=== PATIENT | female | born 2005 | race Caucasian/White ===

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

== ENCOUNTER 2023-11-12 07:31 | Inpatient (IN) ==
[2023-11-12] MEDS ORDERED: OXYTOCIN 30 UNITS/NSS 30 UNITS/500 ML BAG IV PRN (09:04)
[2023-11-12] MEDS ORDERED: LIDOCAINE 1% LOCAL 20 ML VIAL INFIL PRN (09:04)
--- NOTE | 2023-11-12 09:10 | History & Physical Report ---
Date of Service November 12, 2023 Assessment & Plan (1) Post-term , 40-42 weeks of gestation: Plan: 18 yo female at 40.2 wks, scheduled IOL for polyhydramnios VSS Afebrile heart rate reassuring, GBS negative, Cervix favorable, but Patel score less than 6, Plan to admit, monitor, labs, Cervidil for cervical ripening, Discussed what to expect during induction of labor, All questions were answered. (2) Polyhydramnios in ruby in third trimester: Admission and Anticipated Discharge Date Admission Date: November 12, 2023 History of Present Illness Primary Care Provider: NO PCP Patient is a 18-year-old G1, P0 at 40 weeks and 2 days of gestation who is presenting today for induction of labor for postdates and polyhydramnios. Last ZAIDA was 26 cm on November 05. She has no complaints, no contractions, leakage of fluid, vaginal bleeding. She reports good movements. Her has been otherwise uncomplicated, denies medical problems, nor surgeries. GBS negative. Allergies Allergy/AdvReac Type Severity Reaction Status Date / Time sulfamethoxazole Allergy Severe "1/2 OF Verified 07/04/21 22:15 BODY SWELLED UP, RASH". trimethoprim Allergy Severe "1/2 OF Verified 07/04/21 22:15 BODY SWELLED UP, RASH". cefuroxime Allergy Unknown Verified 10/12/23 17:16 cephalexin Allergy Rash Verified 10/12/23 17:16 Home Medications Medication Instructions Recorded Confirmed Type vits no.124-ferrous fum 1 tab PO DAILY 10/12/23 10/12/23 History 27 mg iron-folic acid 800 mcg tablet ( Vitamin) Patient History Medical History (Updated 11/12/23 @ 09:09 by Jordon Cross MD) Migraine Asthma Social History Smoking Status: Never smoker Hx Alcohol Use: No Hx Substance Use: No Preferred Language: Burkinan Communication Ability: Effective Physician Office Rep Required: No Beliefs That Will Affect Care: None marital status: Single Current Living Situation: Parent and Family Current Living Situation Comment: live with mom, and s/o Other Information That Helps Us Care for You: No Feels Safe at Home: Yes Safety Concerns: Feels Safe At This Time Assistive Devices: None CUSTOMER MANAGER History No history of STDs, no history of chlamydia, gonorrhea, herpes Review of Systems as per Subjective / HPI Physical Exam Constitutional: WD/WN, vitals as above well developed, well nourished and comfortable Gastrointestinal (Abdomen): normal bowel sounds, soft, nontender, no hepatosplenomegaly (Gravid, Royal 7 to 8 pound) Genitourinary: no vaginal lesions, no adnexal mass normal external appearance OB Exam Abdomen: + vertex Manual OB Exam: + cervical dilation 2 cm, + cervical effacement 50% and + station -2 OB Exam Monitor Tracing: + external uterine monitor used and + category I Bedside ultrasound confirmed vertex presentation, ZAIDA is 20cm Results & Data Vital Signs (Past 12 Hours) Vital Signs Temp Pulse Resp BP 11/12/23 07:42 16 11/12/23 07:39 96 H 117/63 11/12/23 07:38 36.5 C
[2023-11-12] MEDS: DINOPROSTONE 10 MG INSERT PV ONE (09:50)
[2023-11-12 09:51] LABS: Hematocrit (blood only) 36.2 % (37.0-47.0); Mean Corpuscular Hemoglobin 28.9 pg (25.0-34.0); Mean Corpuscular Hgb Conc 33.1 g/dL (32.0-36.0); Mean Corpuscular Volume 87.2 fL (80.0-100.0); Platelet Count 274 K/uL (130-400); RDW Coefficient of Variation 13.2 % (11.5-14.5); RDW Standard Deviation 41.1 fL (36.4-46.3); Red Blood Count 4.15 M/uL (4.20-5.40); White Blood Count 9.89 K/ul (4.8-10.8)
--- OUTSIDE RECORDS SUMMARY | 2023-11-12 13:00 | External Medical Summary | Summary of Care ---
Author Name Unknown Organization [facility] Address [address] [place] [address] Phone [phone] Care Team Providers Care Refinisher Name Role Phone Linda Olsen DO Primary Care Provider [phone] Reason for Visit * Reason Onset Date Comments Order Request 10/16/2023 Encounter Details Date Type Department Care Team (Late st Contact Info) Description 10/16/2023 Telephone Gynecology/Obstetrics [facility] [address] [place] [address] Tarun Fang CRNP [address] [place] [id number] Order Request Allergies Active Allergy Reactions Criticality Noted Date Comments Cefuroxime Rash 12/18/2016 Cephalexin Rash 12/12/2014 Rash and swelling Sulfamethoxazole Rash 10/15/2020 Trimethoprim Rash 10/15/2020 documented as of this encounter (statuses as of 10/17/2023) Medications Medication Sig Dispensed Refills Start Date End Date Status 19 29-1 MG Oral Tablet Chewable Take by mouth. 0 Active Iron-Vitamin C 65-125 MG Oral Tablet (Vitron C) Take 1 Tablet by mouth daily. 90 Tablet 1 09/08/2023 Active documented as of this encounter (statuses as of 10/17/2023) Active Problems Problem Noted Date Diagnosed Date Polyhydramnios in third trimester 10/09/2023 Overview: ZAIDA 28cm at 35w Antepartum anemia complicating 023 Normal 04/10/2023 Fecal incontinence 08/20/2021 Lactose intolerance 08/20/2021 Abdominal pain, left lower quadrant 08/20/2021 Diarrhea 08/20/2021 PARVIZ (generalized anxiety disorder) 07/26/2021 Adolescent idiopathic scoliosis of thoracolumbar region 11/27/2018 Mixed migraine and muscle contraction headache 0 11/27/2018 Estimated Date of Delivery Comme nts Yes 11/10/2023 Based on Ultraso und documented as of this encounter (statuses as of 10/17/2023) Resolved Problems Problem Noted Date Diagnosed Date Resolved Date Moderate episode of recurren t major depressive disorder 11/27/2018 07/26/2020 Loss of weight 11/27/2018 12/31/2018 documented as of this encounter (statuses as of 10/17/2023) Immunizations Name Administration Dates Next Due COVID-19 mRNA, LNP-s, No Pre serve, 2-Dose Series ([place]) 08/13/2021,07/23/2021 DTaP HIB - Dipth/Tet/Acell Pert/HIB 06/30/2009 DTaP Dipth/Tet/Acell Pertussis (Infanrix), Peds 06/30/2009,12/26/2004,2003,10/10,2003 H1N1 2009 Influenza, IM 08/14/2009,06/30/2009 HIB PRP-T, 4 dose (ActHib) 2003,2003 ,2003 HPV Vaccine, 9-Valent 05/07/2017,05/07/2016 Hep A - Hepatitis A (ped/ado le, 1-18 Yrs) 06/22/2009,12/13/2008 Hepatitis A Vaccine 06/22/2009 Hepatitis B, 0-19 yrs 12/26/2004,2002,2003,05/29 IPV - Polio Virus Vaccine (Inact) 2016,12/26/2004,2003,10/10,2003 MMR - Measles/Mumps/Rubella Vaccine 03/27/2007,0 12/26/2004 Meningococcal B, 2/3-Dose Se magi (TRUMENBA) 07/26/2020 Meningococcal MCV4O Conjugat e Vaccine (Menveo) 07/26/2020 Meningococcal MCV4P Conjugat e Vaccine (Menactra) 07/26/2020,05/07/2016 Pneumococcal Conjugate Vacc, 13 Valent (Prevnar) 03/16/2006,2003,2003 Seasonal Influenza Virus Vac cine, Unspecified Formulation 07/26/2020,05/07/2017,05/07/2016,11/04,06/29/2010,08/14/2009,06/30/2009 ,06/22/2009 Seasonal Influenza, PF, 6 M & above, IM , (FluLaval or Fluzone) 07/26/2020 TDAP (age 10 and older)(Boostrix) 08/21/2023 TDAP (age 11 and older)(Adacel) 05/07/2016 Varicella Vaccine (Chicken Pox) 12/13/2008,12/26 documented as of this encounter Social History Tobacco Use Types Packs/Day Years Used Date Smoking Tobacco: Never Smokeless Tobacco: Never Alcohol Use Standard Drinks/Week Comments Not Currently 0 (1 standard drink = 0.6 oz pur e alcohol) AUDIT-C Answer Date Recorded Frequency of Alcohol Consumption Never 11/27/2018 Average Number of Drinks Not on file 019 Frequency of Binge Drinking Not on file 12/2018 PHQ-2 Answer Date Recorded PHQ Adult Total Score 16 09/25/2021 Hunger Vital Sign Answer Date Recorded Within the past 12 months, y ou worried that your food would run out before you got the money to buy more. Never true 04/10/20 23 Within the past 12 months, t he food you bought just didn't last and you didn't have money to get more. Never true 04/10/2023 Lowman Depression Scale Answer Date Recorded Lowman Depression Scale Total 8 10/02/2023 The thought of harming myself has occurred to me . Never 10/02/2023 Estimated Date of Delivery Comme nts Yes 11/10/2023 Based on Ultraso und Sex and Gender Information Value Date Recorded Sex Assigned at Female 03/07/2023 11:19 AM EDT Gender Identity Female 03/07/2023 11:19 AM EDT Sexual Orientation Straight 04/10/2023 1: 14 PM EDT Job Start Date Occupation Industry Not on file Not on file Not on file documented as of this encounter Miscellaneous Notes * Addendum Note - Tarun Fang CRNP - 10/17/2023 7:57 AM ESTAddended by: TARUN FANG on: 10/17/2023 07:57 AM Modules accepted: Orders * Telephone Encounter - Tarun Fang CRNP - 10/17/2023 7:57 AM EST Order placed. * Telephone Encounter - Abi Jackson OSA - 10/16/2023 11:25 AM EST Pt is scheduled for US PREG LIMITED 1 OR MORE FETUSES and needs order placed documented in this encounter Plan of Treatment Upcoming Encounters Date Type Department Care Team (Late st Contact Info) Description 10/23/2023 9:15 AM EST Imaging Radiology [facility] [address] [place] [address] 10/23/2023 10:30 AM EST Office Visit Gynecology/Obstetrics [facility] [address] [place] [address] Tarun Fang CRNP [address] [place] [address] 10/30/2023 10:30 AM EST Office Visit Gynecology/Obstetrics [facility] [address] [place] [address] Tarun Fang CRNP [address] [place] [address] 11/06/2023 10:30 AM EDT Office Visit Gynecology/Obstetrics [facility] [address] [place] [address] Tarun Fang CRNP [address] [place] [address] 11/11/2023 10:00 AM EDT Office Visit Gynecology/Obstetrics [facility] [address] [place] [address] Tarun Fang CRNP [address] [place] [address] Scheduled Orders Name Type Priority Associated Diagnoses Orde r Schedule US PREG LIMITED 1 OR MORE FETUSES Medical Imaging Routine Polyhydramnios in third trimester complication, single or unspecified fetus Expected: 10/24/2023 (Approximate), Expires: 11/14/2024 Health Maintenance Due Date Last Done Comments Yearly Wellness Visit 07/26/2021 07/26/2020, 019 Depression, Most Recent Scor e >= 10 (will fire each visit until score < 10) 09/26/2021 09/25/2021 COVID-19 Vaccine (3 2022-2 4 season) 2023 08/13/2021, 07/23/2021 Influenza Vaccine (FLU shot) (#1) 2023 07/26/2020, 07/26/2020, 05/07/2017, Additional history exists Gonorrhea / Chlamydia Screen 04/10/2024, 09/25/2021, 01/01/2019 DTaP,Tdap,and Td Vaccines (8 - Td or Tdap) 08/21/2033 08/21/2023, 05/07/2016, 06/30/2009, Additional history exists Hepatitis B Completed 12/26/2004, 06/25, 2003, Additional history exists Pneumococcal Vaccine: Pediat rics (0 to 5 Years) and At-Risk Patients (6 to 64 Years) Completed 03/16/2006, 2003, 2003 GARDASIL-HPV IMMUNIZATION SERIES Completed 05/07/20 17, 05/07/2016 MENINGOCOCCAL (MENACTRA/MENVEO) Completed 07/26/2020, 07/26/2020, 05/07/2016 documented as of this encounter Medical Devices Not on filedocumented as of this encounter Visit Diagnoses Diagnosis Polyhydramnios in third trimester complication, single or unspecified fetus- Primary documented in this encounter Care Teams Refinisher Relationship Specialty Start Date End Date Linda Olsen DO [address] [facility] [place] [address] PCP - General Family Medicine 11/01/22 documented as of this encounter
--- OUTSIDE RECORDS SUMMARY | 2023-11-12 13:00 | External Medical Summary ---
Author Name Unknown Address Unknown Organization [id number]:[facility] [place] [facility] [address] [place] [address] Laboratory Report Ordering Provider Test Date Status RENNY MCNEIL 10/23/2023 11:23:50 Final Observation Date Value Abnormality Reference (Units ) Status Streptococcus agalactiae DNA [Presence] in Specimen by MARY with probe detection 10/23/2023 11:23:50 Negative Negative Final No Group B Streptococcus det ected by culture-enhanced PCR (amplified probe).
The collection of vaginal/rectal swab specimen combinations (FDA approved specimen type) is optimal for the detection of Group B Streptococcus. Single source collection (vaginal only or rectal only) or alternate specimen sources may lead to false negative results. Performing Location [facility] [place] [address] [place] [address]
--- OUTSIDE RECORDS SUMMARY | 2023-11-12 13:00 | External Medical Summary | Summary of Care ---
Author Name Unknown Organization [facility] Address [address] [place] [address] Phone [phone] Care Team Providers Care Pot Sander Name Role Phone Linda Olsen DO Primary Care Provider +1- [phone] Reason for Visit * Reason Comments Return Visit Encounter Details Date Type Department Care Team (Late st Contact Info) Description 10/30/2023 10:30 AM EST Office Visit Gynecology/Obstetric s [facility] [address] [place] [address] Ana Paula Fang CRNP [address] [facility] [place] [address] Normal in third trimester*; Antepartum anemia complicating ; Polyhydramnios in third trimester complication, single or unspecified fetus Allergies Active Allergy Reactions Criticality Noted Date Comments Cefuroxime Rash 12/18/2016 Cephalexin Rash 12/12/2014 Rash and swelling Sulfamethoxazole Rash 10/15/2020 Trimethoprim Rash 10/15/2020 documented as of this encounter (statuses as of 10/30/2023) Medications Medication Sig Dispensed Refills Start Date End Date Status 19 29-1 MG Oral Tablet Chewable Take by mouth. 0 Active Iron-Vitamin C 65-125 MG Oral Tablet (Vitron C) Take 1 Tablet by mouth daily. 90 Tablet 1 09/08/2023 Active documented as of this encounter (statuses as of 10/30/2023) Active Problems Problem Noted Date Diagnosed Date [...] as of this encounter (statuses as of 10/30/2023) Resolved Problems Problem Noted Date Diagnosed Date Resolved Date Moderate episode of recurren t major depressive disorder 11/27/2018 07/26/2020 Loss of weight 11/27/2018 12/31/2018 documented as of this encounter (statuses as of 10/30/2023) Immunizations Name Administration Dates Next Due COVID-19 mRNA, LNP-s, No Pre serve, 2-Dose Series ([employer]) 08/13/2021,07/23/2021 DTaP HIB - Dipth/Tet/Acell Pert/HIB 06/30/2009 DTaP Dipth/Tet/Acell Pertussis (Infanrix), Peds 06/30/2009,12/26/2004,2003,10/10,2003 H1N1 2009 Influenza, IM 08/14/2009,06/30/2009 HIB PRP-T, 4 dose (ActHib) 2003,2003 ,2003 HPV Vaccine, 9-Valent 05/07/2017,05/07/2016 Hep A - Hepatitis A (ped/ado le, 1-18 Yrs) 06/22/2009,12/13/2008 Hepatitis A Vaccine 06/22/2009 Hepatitis B, 0-19 yrs 12/26/2004, 003,2003,05/29 IPV - Polio Virus Vaccine (Inact) 2016,12/26/2004,2003,10/10,2003 [...] money to get more. Never true 04/10/2023 [place] Depression Scale Answer Date Recorded [place] Depression Scale Total 8 10/02/2023 The thought [...] on file documented as of this encounter Last Filed Vital Signs Vital Sign Reading Time Taken Comments Blood Pressure 104/60 10/30/2023 10:16 AM EST Pulse 98 10/30/2023 10:16 AM EST Temperature - - Respiratory Rate - - Oxygen Saturation 98% 10/30/2023 10:16 AM EST Inhaled Oxygen Concentration - - Weight 83 kg (183 lb) 10/30/2023 10:16 AM EST Height - - Body Mass Index - - documented in this encounter Progress Notes * Ana Paula Fang CRNP - 10/30/2023 10:33 AM EST 38w3d Feeling short of breath at times. Has occurred when standing, when lying down. Comfortable today. Pulse and pulse ox normal. Explained to pt that concerns of SOB should be evaluated at ED, need to r/o PE. She does not feel that is necessary at this time. No other concerns. Baby is active. No contractions, bleeding, LOF. Will repeat u/s with next visit to check ZAIDA, has mild poly. SHANKAR Rizo * Gabi Yap LPN - 10/30/2023 10:16 AM EST 38w3d Denies vaginal bleeding/rom + movement No new concerns documented in this encounter Plan of Treatment Upcoming Encounters Date Type Department Care Team (Late st Contact Info) Description 11/06/2023 9:15 AM EDT Imaging Radiology [facility] [facility] [facility] [place] [address] 11/06/2023 10:30 AM EDT Office Visit Gynecology/Obstetrics [facility] [address] [facility] [place] [address] Ana Paula Fang CRNP [address] [facility] [place] [address] 11/11/2023 10:00 AM EDT Office Visit Gynecology/Obstetrics [facility] [address] [place] [address] Ana Paula Fang CRNP [address] [place] [address] Scheduled Orders Name Type Priority Associated Diagnoses Orde r Schedule US PREG LIMITED 1 OR MORE FETUSES Medical Imaging Routine Polyhydramnios in third trimester complication, single or unspecified fetus Expected: 11/06/2023 (Approximate), Expires: 11/29/2024 Health Maintenance Due Date Last Done Comments Yearly Wellness Visit 07/26/2021 07/26/2020, 019 Depression, Most Recent Scor e >= 10 (will fire each visit until score < 10) 09/26/2021 09/25/2021 COVID-19 Vaccine (3 - 2022-2 4 season) 2023 08/13/2021, 07/23/2021 Influenza [...] as of this encounter Visit Diagnoses Diagnosis Normal in third trimester- Primary Antepartum anemia complicating Anemia, antepartum Polyhydramnios in third trimester complication, single or unspecified fetus documented in this encounter Care Teams Pot Sander Relationship Specialty Start Date End Date Linda Olsen DO [address] [facility] [place] [address] PCP - General Family Medicine 11/01/22 documented as of this encounter
--- OUTSIDE RECORDS SUMMARY | 2023-11-12 13:00 | External Medical Summary | Summary of Care ---
Author Name Unknown Organization [facility] Address [address] [place] [address] Phone [phone] Care Team Providers Care Network Program Manager Name Role Phone Linda Olsen DO Primary Care Provider +1- [phone] Reason for Visit * Reason Comments Return Visit Encounter Details Date Type Department Care Team (Late st Contact Info) Description 10/23/2023 10:30 AM EST Office Visit Gynecology/Obstetric s [facility] [address] [place] [address] Ana Paula Fang CRNP [address] [place] [address] Normal in third trimester*; Antepartum anemia complicating ; Polyhydramnios in third trimester complication, single or unspecified fetus Allergies Active Allergy Reactions Criticality Noted Date Comments Cefuroxime Rash 12/18/2016 Cephalexin Rash 12/12/2014 Rash and swelling Sulfamethoxazole Rash 10/15/2020 Trimethoprim Rash 10/15/2020 documented as of this encounter (statuses as of 10/23/2023) Medications Medication Sig Dispensed Refills Start Date End Date Status 19 29-1 MG Oral Tablet Chewable Take by mouth. 0 Active Iron-Vitamin C 65-125 MG Oral Tablet (Vitron C) Take 1 Tablet by mouth daily. 90 Tablet 1 09/08/2023 Active documented as of this encounter (statuses as of 10/23/2023) Active Problems Problem Noted Date Diagnosed Date [...] as of this encounter (statuses as of 10/23/2023) Resolved Problems Problem Noted Date Diagnosed Date Resolved Date Moderate episode of recurren t major depressive disorder 11/27/2018 07/26/2020 Loss of weight 11/27/2018 12/31/2018 documented as of this encounter (statuses as of 10/23/2023) Immunizations Name Administration Dates Next Due COVID-19 mRNA, LNP-s, No Pre serve, 2-Dose Series ([employer]exi) 08/13/2021,07/23/2021 DTaP HIB - Dipth/Tet/Acell Pert/HIB 06/30/2009 [...] money to get more. Never true 04/10/2023 [place] Depression Scale Answer Date Recorded [place] Depression Scale Total 8 10/02/2023 The thought [...] Sign Reading Time Taken Comments Blood Pressure 104/56 10/23/2023 10:07 AM EST Pulse - - Temperature - - Respiratory Rate - - Oxygen Saturation - - Inhaled Oxygen Concentration - - Weight 81.6 kg (180 lb) 10/23/2023 10:07 AM EST Height 165.1 cm (5' 5") 10/23/2023 10:07 AM EST Body Mass Index 29.95 10/23/2023 10:07 AM EST documented in this encounter Progress Notes * Ana Paula Fang CRNP - 10/23/2023 10:47 AM EST 37w3d Noticing BLE edema. Improves overnight, but returns quickly once she is up. Encouraged compression stockings daily, all day. C/o pelvic pressure. Baby is active. No regular contractions. ZAIDA today, 23.3cm. Vertex presentation. GBS today. Roll Builder Documentation Provider requested labor mediator. Name of labor mediator: SHANKAR Stiles documented in this encounter Nursing Notes * Vonnie Sapp LPN - 10/23/2023 10:07 AM EST 37w3d ZAIDA today 23.3cm, 95%. BL LE swelling. Recommend push fluids, elevate, she is already wearing compression socks. GBS today. documented in this encounter Plan of Treatment Upcoming Encounters Date Type Department Care Team (Late st Contact Info) Description 10/30/2023 10:30 AM EST Office Visit Gynecology/Obstetrics [facility] [address] [place] [address] Ana Paula Fang CRNP [address] [place] [address] 11/06/2023 10:30 AM EDT Office Visit Gynecology/Obstetrics [facility] [address] [place] [address] Ana Paula Fang CRNP [address] [place] [address] 11/11/2023 10:00 AM EDT Office Visit Gynecology/Obstetrics [facility] [address] [place] [address] Ana Paula Fang CRNP [address] [place] [address] Pending Results Name Type Priority Associated Diagnoses Date /Time GROUP B STREP CULTURE/PCR Lab Routine Normal in third trimester 10/23/2023 11:23 AM EST Scheduled Orders Name Type Priority Associated Diagnoses Orde r Schedule GROUP B STREP CULTURE/PCR Lab Routine Normal in third trimester Expected: 10/23/2023, Expires: 10/22/2024 Health Maintenance Due Date Last Done Comments [...] fetus documented in this encounter Care Teams Network Program Manager Relationship Specialty Start Date End Date Linda Olsen DO [address] [facility] [place] [address] PCP - General Family Medicine 11/01/22 documented as of this encounter
--- OUTSIDE RECORDS SUMMARY | 2023-11-12 13:00 | External Medical Summary | Summary of Care ---
Author Name Unknown Organization [facility] Address [address] [place] [address] Phone [phone] Care Team Providers Care Driver Wheelchair Name Role Phone Linda Olsen DO Primary Care Provider +1- [phone] Reason for Visit * Reason Onset Date Comments Order Request 10/16/2023 Encounter Details Date Type Department Care Team (Late st Contact Info) Description 10/16/2023 Telephone Gynecology/Obstetrics [facility] [address] [place] [address] Ana Paula Fang CRNP [address] [place] [address] Order Request Allergies Active Allergy Reactions Criticality Noted Date Comments Cefuroxime Rash 12/18/2016 Cephalexin Rash 12/12/2014 Rash and swelling Sulfamethoxazole Rash 10/15/2020 Trimethoprim Rash 10/15/2020 documented as of this encounter (statuses as of 10/16/2023) Medications Medication Sig Dispensed Refills Start Date End Date Status 19 29-1 MG Oral Tablet Chewable Take by mouth. 0 Active Iron-Vitamin C 65-125 MG Oral Tablet (Vitron C) Take 1 Tablet by mouth daily. 90 Tablet 1 09/08/2023 Active documented as of this encounter (statuses as of 10/16/2023) Active Problems Problem Noted Date Diagnosed Date [...] as of this encounter (statuses as of 10/16/2023) Resolved Problems Problem Noted Date Diagnosed Date Resolved Date Moderate episode of recurren t major depressive disorder 11/27/2018 07/26/2020 Loss of weight 11/27/2018 12/31/2018 documented as of this encounter (statuses as of 10/16/2023) Immunizations Name Administration Dates Next Due COVID-19 mRNA, LNP-s, No Pre serve, 2-Dose Series ([employer]) 08/13/2021,07/23/2021 DTaP HIB - Dipth/Tet/Acell Pert/HIB 06/30/2009 DTaP Dipth/Tet/Acell Pertussis (Infanrix), Peds 06/30/2009,12/26/2004,2003,10/10,2003 H1N1 2009 Influenza, IM 08/14/2009,06/30/2009 HIB PRP-T, 4 dose (ActHib) 2003,2003 ,2003 HPV Vaccine, 9-Valent 05/07/2017,05/07/2016 Hep A - Hepatitis A (ped/ado le, 1-18 Yrs) 06/22/2009,12/13/2008 Hepatitis A Vaccine 06/22/2009 Hepatitis B, 0-19 yrs 12/26/2004,07/11/ 003,2003,05/29 IPV - Polio Virus Vaccine (Inact) [...] money to get more. Never true 04/10/2023 [place] Depression Scale Answer Date Recorded [place] Depression Scale Total 8 10/02/2023 The thought [...] as of this encounter Miscellaneous Notes * Telephone Encounter - Abi Jackson OSA - 10/16/2023 11:25 AM EST Pt is scheduled for US PREG LIMITED 1 OR MORE FETUSES and needs order placed documented in this encounter Plan of Treatment Upcoming Encounters Date Type Department Care Team (Late st Contact Info) Description 10/23/2023 9:15 AM EST Imaging Radiology [facility] [address] [place] [address] 10/23/2023 10:30 AM EST Office Visit Gynecology/Obstetrics [facility] [address] [place] [address] Ana Paula Fang CRNP [address] [place] [address] 10/30/2023 10:30 AM EST Office Visit Gynecology/Obstetrics [facility] [address] [place] [address] Ana Paula Fang CRNP [address] [place] [address] 11/06/2023 10:30 AM EDT Office Visit Gynecology/Obstetrics [facility] [address] [place] [address] Ana Paula Fang CRNP [address] [place] [address] 11/11/2023 10:00 AM EDT Office Visit Gynecology/Obstetrics [facility] [address] [place] [address] Ana Paula Fang CRNP [address] [place] [address] Health Maintenance Due Date Last Done Comments [...] Not on filedocumented as of this encounter Care Teams Driver Wheelchair Relationship Specialty Start Date End Date Linda Olsen DO [address] [facility] [place] [address] PCP - General Family Medicine 11/01/22 documented as of this encounter
--- OUTSIDE RECORDS SUMMARY | 2023-11-12 13:00 | External Medical Summary | Summary of Care ---
Author Name Unknown Organization [facility] Address [address] [place] [address] Phone [phone] Care Team Providers Care Director Of Promotions Name Role Phone Linda Olsen DO Primary Care Provider +1- [phone] Encounter Details Date Type Department Care Team (Late st Contact Info) Description 10/12/2023 Result Scan Unspecified Department <No scans attached> Allergies Active Allergy Reactions Criticality Noted Date Comments Cefuroxime Rash 12/18/2016 Cephalexin Rash 12/12/2014 Rash and swelling Sulfamethoxazole Rash 10/15/2020 Trimethoprim Rash 10/15/2020 documented as of this encounter (statuses as of 10/13/2023) Medications Medication Sig Dispensed Refills Start Date End Date Status 19 29-1 MG Oral Tablet Chewable Take by mouth. 0 Active Iron-Vitamin C 65-125 MG Oral Tablet (Vitron C) Take 1 Tablet by mouth daily. 90 Tablet 1 09/08/2023 Active documented as of this encounter (statuses as of 10/13/2023) Active Problems Problem Noted Date Diagnosed Date [...] as of this encounter (statuses as of 10/13/2023) Resolved Problems Problem Noted Date Diagnosed Date Resolved Date Moderate episode of recurren t major depressive disorder 11/27/2018 07/26/2020 Loss of weight 11/27/2018 12/31/2018 documented as of this encounter (statuses as of 10/13/2023) Immunizations Name Administration Dates Next Due COVID-19 mRNA, LNP-s, No Pre serve, 2-Dose Series (Pfizer) 08/13/2021,07/23/2021 DTaP HIB - Dipth/Tet/Acell Pert/HIB 06/30/2009 DTaP Dipth/Tet/Acell Pertussis (Infanrix), Peds 06/30/2009,12/26/2004,2003,10/10,2003 H1N1 2008 Influenza, IM 08/14/2009,06/30/2009 HIB PRP-T, 4 dose [...] money to get more. Never true 04/10/2023 [place] Depression Scale Answer Date Recorded [place] Depression Scale Total 8 10/02/2023 The thought [...] on file documented as of this encounter Plan of Treatment Upcoming Encounters Date Type Department Care Team (Late st Contact Info) Description 10/16/2023 9:15 AM EST Imaging Radiology [address] [place] [address] 10/16/2023 10:45 AM EST Office Visit Gynecology/Obstetrics [facility] [address] [place] [address] Ana Paula Fang CRNP [address] [place] [address] 10/23/2023 9:15 AM EST Imaging Radiology [facility] [address] [place] [address] 10/23/2023 10:30 AM EST Office Visit Gynecology/Obstetrics [facility] [address] [place] [address] Ana Paula Fang CRNP [address] [place] [address] 10/30/2023 10:30 AM EST Office Visit Gynecology/Obstetrics [facility] [address] [place] [address] Ana Paula Fang CRNP [address] [place] [address] 11/06/2023 10:30 AM EDT Office Visit Gynecology/Obstetrics [facility] [address] [place] [address] Ana Paula Fang CRNP [address] [place] [address] 11/11/2023 10:00 AM EDT Office Visit Gynecology/Obstetrics [facility] [address] [place] [address] Ana Paula Fang CRNP [address] [place] [address] Health Maintenance Due Date Last Done Comments [...] Not on filedocumented as of this encounter Procedures Procedure Name Priority Date/Time Associated Diagnosis Comments OUTSIDE LAB RESULTS 10/12/2023 documented in this encounter Results * OUTSIDE LAB RESULTS (10/12/2023) 10/12/2023 No Physician Data Unknown LABORATORY documented in this encounter Care Teams Director Of Promotions Relationship Specialty Start Date End Date Linda Olsen DO [address] [facility] [place] [address] PCP - General Family Medicine 11/01/22 documented as of this encounter
--- OUTSIDE RECORDS SUMMARY | 2023-11-12 13:00 | External Medical Summary | Summary of Care ---
Author Name Unknown Organization [facility] Address [address] [place] [address] Phone [phone] Care Team Providers Care Field Research Associate Name Role Phone Linda Olsen DO Primary Care Provider +1- [phone] Reason for Visit * Reason Comments Return Visit Encounter Details Date Type Department Care Team (Late st Contact Info) Description 11/06/2023 10:30 AM EDT Office Visit Gynecology/Obstetric s [facility] [address] [facility] [place] [address] Ana Paula Fang CRNP [address] [facility] [place] [address] Normal in third trimester*; Antepartum anemia complicating ; Polyhydramnios in third trimester complication, fetus 1 of multiple gestation Allergies Active Allergy Reactions Criticality Noted Date Comments Cefuroxime Rash 12/18/2016 Cephalexin Rash 12/12/2014 Rash and swelling Sulfamethoxazole Rash 10/15/2020 Trimethoprim Rash 10/15/2020 documented as of this encounter (statuses as of 11/06/2023) Medications Medication Sig Dispensed Refills Start Date End Date Status 19 29-1 MG Oral Tablet Chewable Take by mouth. 0 Active Iron-Vitamin C 65-125 MG Oral Tablet (Vitron C) Take 1 Tablet by mouth daily. 90 Tablet 1 09/08/2023 Active documented as of this encounter (statuses as of 11/06/2023) Active Problems Problem Noted Date Diagnosed Date [...] as of this encounter (statuses as of 11/06/2023) Resolved Problems Problem Noted Date Diagnosed Date Resolved Date Moderate episode of recurren t major depressive disorder 11/27/2018 07/26/2020 Loss of weight 11/27/2018 12/31/2018 documented as of this encounter (statuses as of 11/06/2023) Immunizations Name Administration Dates Next Due COVID-19 mRNA, LNP-s, No Pre serve, 2-Dose Series ([employer]) 08/13/2021,07/23/2021 DTaP HIB - Dipth/Tet/Acell Pert/HIB 06/30/2009 [...] money to get more. Never true 04/10/2023 [place] Depression Scale Answer Date Recorded [place] Depression Scale Total 8 10/02/2023 The thought [...] Sign Reading Time Taken Comments Blood Pressure 110/70 11/06/2023 10:13 AM EDT Pulse - - Temperature - - Respiratory Rate - - Oxygen Saturation - - Inhaled Oxygen Concentration - - Weight 83.6 kg (184 lb 6.4 oz) 11/06/2023 10:13 AM EDT Height - - Body Mass Index - - documented in this encounter Progress Notes * Ana Paula Fang CRNP - 11/06/2023 10:38 AM EDT 39w3d No concerns. Has mild polyhydramnios. Baby is active. No bleeding or LOF. U/s today, ZAIDA 26cm. +cardiac activity on u/s. Vertex presentation. IOL scheduled for 11/11. SHANKAR Rizo * Naye Renteria RN - 11/06/2023 10:15 AM EDT No ctx. documented in this encounter Plan of Treatment Upcoming Encounters Date Type Department Care Team (Late st Contact Info) Description 11/11/2023 10:00 AM EDT Office Visit Gynecology/Obstetrics [facility] [address] [place] [address] Ana Paula Fang CRNP [address] [place] [address] Health Maintenance Due Date Last Done Comments Yearly Wellness Visit 07/26/2021 07/26/2020, 019 Depression, Most Recent Scor e >= 10 (will fire each visit until score < 10) 09/26/2021 09/25/2021 COVID-19 Vaccine (2022-2 4 season) 2023 08/13/2021, 07/23/2021 Influenza Vaccine [...] Anemia, antepartum Polyhydramnios in third trimester complication, fetus 1 of multiple gestation documented in this encounter Care Teams Field Research Associate Relationship Specialty Start Date End Date Linda Olsen DO [address] [facility] [place] [address] PCP - General Family Medicine 11/01/22 documented as of this encounter
--- OUTSIDE RECORDS SUMMARY | 2023-11-12 13:00 | External Medical Summary | Summary of Care ---
Author Name Unknown Organization [facility] Address [address] [place] [address] Phone [phone] Care Team Providers Care Java Consultant Name Role Phone Linda Olsen DO Primary Care Provider +1- [phone] Reason for Visit * Reason Comments Return Visit Encounter Details Date Type Department Care Team (Late st Contact Info) Description 10/23/2023 10:30 AM EST Office Visit Gynecology/Obstetric s [facility] [address] [place] [address] Ana Paula Fang CRNP [address] [facility] [place] [address] Normal in third trimester*; Antepartum anemia complicating [...] mRNA, LNP-s, No Pre serve, 2-Dose Series ([employer]) 08/13/2021,07/23/2021 DTaP HIB - Dipth/Tet/Acell Pert/HIB 06/30/2009 [...] money to get more. Never true 04/10/2023 [place] Depression Scale Answer Date Recorded [place] Depression Scale Total 8 10/02/2023 The thought [...] ZAIDA today, 23.3cm. Vertex presentation. GBS today. Comb Setter Documentation Provider requested attending anesthesiologist. Name of attending anesthesiologist: SHANKAR Stiles documented in this encounter Nursing [...] [facility] [address] [place] [address] Ana Paula Fang CRNP [address] [place] [address] 11/06/2023 10:30 AM EDT Office Visit Gynecology/Obstetrics [facility] [address] [place] [address] Ana Paula Fang CRNP [address] [place] [address] 11/11/2023 10:00 AM EDT Office Visit Gynecology/Obstetrics [facility] [address] [place] [address] Ana Paula Fang CRNP [address] [place] [address] Scheduled Orders Name Type Priority Associated Diagnoses [...] fetus documented in this encounter Care Teams Java Consultant Relationship Specialty Start Date End Date Linda Olsen DO [address] [facility] [place] [address] PCP - General Family Medicine 11/01/22 documented as of this encounter
--- OUTSIDE RECORDS SUMMARY | 2023-11-12 13:00 | External Medical Summary | Summary of Care ---
Author Name Unknown Organization [facility] Address [address] [place] [address] Phone [phone] Care Team Providers Care Rn Palliative Name Role Phone Linda Olsen DO Primary Care Provider [phone] Reason for Visit * Reason Onset Date Comments Abnormal Test Results 10/09/2023 Encounter Details Date Type Department Care Team (Late st Contact Info) Description 10/09/2023 Telephone Gynecology/Obstetrics [facility] [address] [place] [id number] Ana Paula Fang CRNP [address] [facility] [place] [address] Abnormal Test Results Allergies Active Allergy Reactions Criticality Noted Date Comments Cefuroxime Rash 12/18/2016 Cephalexin Rash 12/12/2014 Rash and swelling Sulfamethoxazole Rash 10/15/2020 Trimethoprim Rash 10/15/2020 documented as of this encounter (statuses as of 10/15/2023) Medications Medication Sig Dispensed Refills Start Date End Date Status 19 29-1 MG Oral Tablet Chewable Take by mouth. 0 Active Iron-Vitamin C 65-125 MG Oral Tablet (Vitron C) Take 1 Tablet by mouth daily. 90 Tablet 1 09/08/2023 Active documented as of this encounter (statuses as of 10/15/2023) Active Problems Problem Noted Date Diagnosed Date [...] as of this encounter (statuses as of 10/15/2023) Resolved Problems Problem Noted Date Diagnosed Date Resolved Date Moderate episode of recurren t major depressive disorder 11/27/2018 07/26/2020 Loss of weight 11/27/2018 12/31/2018 documented as of this encounter (statuses as of 10/15/2023) Immunizations Name Administration Dates Next Due COVID-19 mRNA, LNP-s, No Pre serve, 2-Dose Series ([facility]) 08/13/2021,07/23/2021 DTaP HIB - Dipth/Tet/Acell Pert/HIB 06/30/2009 [...] money to get more. Never true 04/10/2023 [place] Depression Scale Answer Date Recorded [place] Depression Scale Total 8 10/02/2023 The thought [...] encounter Miscellaneous Notes * Telephone Encounter - Viviane Luu MED ASSIST - 10/10/2023 9:32 AM EST Pt scheduled for next 2 weeks. * Telephone Encounter - Kerry Person LPN - 10/09/2023 2:11 PM EST Patient notified. Please call her to schedule weekly AFIs * Telephone Encounter - Ana Paula Fang CRNP - 10/09/2023 2:05 PM EST Still with polyhydramnios. Should have weekly ZAIDA until resolution/delivery. Order placed. Help herget scheduled for one week from now. documented in this encounter Plan of Treatment Upcoming Encounters Date Type Department Care Team (Late st Contact Info) Description 10/16/2023 9:15 AM EST Imaging Radiology [facility] [address] [place] [id number] 10/16/2023 10:45 AM EST Office Visit Gynecology/Obstetrics [facility] [address] [facility] [place] [address] Ana Paula Fang CRNP [address] [place] [address] 10/23/2023 9:15 AM EST Imaging Radiology [facility] [address] [place] [address] 10/23/2023 10:30 AM EST Office Visit Gynecology/Obstetrics [facility] [address] [facility] [place] [address] Ana Paula Fang CRNP [address] [place] [address] 10/30/2023 10:30 AM EST Office Visit Gynecology/Obstetrics [facility] [address] [place] [address] Ana Paula Fang CRNP [address] [place] [address] 11/06/2023 10:30 AM EDT Office Visit Gynecology/Obstetrics [facility] [address] [place] [address] Ana Paula Fang CRNP [address] [place] [address] 11/11/2023 10:00 AM EDT Office Visit Gynecology/Obstetrics [facility] [address] [place] [id number] Ana Paula Fang CRNP [address] [place] [address] Scheduled Orders Name Type Priority Associated Diagnoses Orde r Schedule US PREG LIMITED 1 OR MORE FETUSES Medical Imaging Routine Polyhydramnios in third trimester complication, single or unspecified fetus Expected: 10/16/2023 (Approximate), Expires: 11/06/2024 Health Maintenance Due Date Last Done Comments [...] Primary documented in this encounter Care Teams Rn Palliative Relationship Specialty Start Date End Date Linda Olsen DO [address] [facility] [place] [address] PCP - General Family Medicine 11/01/22 documented as of this encounter
[2023-11-12] MEDS: LACTATED RINGER'S 1,000 ML IV PRN (14:02)
--- NOTE | 2023-11-12 14:15 | Obstetrical Progress Note ---
Date of Service November 12, 2023 Assessment & Plan Admission and Anticipated Discharge Date Admission Date: November 12, 2023 Subjective Patient started to feel painful contractions for the last hour or so. Does not need pain medication for now. VE; 3/ 50%-2, tight bag FHR categ i ctxs q 2-3 min Continue to monitor closely Start IVF bolus Results & Data Vital Signs (Past 12 Hours) Vital Signs Temp Pulse Resp BP 11/12/23 13:56 95 H 133/67 11/12/23 11:06 36.8 C 11/12/23 07:42 16 11/12/23 07:39 96 H 117/63 11/12/23 07:38 36.5 C
[2023-11-12] MEDS: BUTORPHANOL TARTRATE 2 MG/ML VIAL IV PRN (14:40)
[2023-11-12] MEDS ORDERED: NALOXONE HCL 1 MG in SODIUM CHLORIDE 0.9% 1,000 ML IV PRN (16:53)
[2023-11-12] MEDS ORDERED: ROPIVACAINE 0.5% PF 5 MG/ML 20 ML VIAL EPI PRN (16:53)
[2023-11-12] MEDS ORDERED: fentaNYL citrate PF 100 MCG/2 ML VIAL EPI PRN (16:53)
[2023-11-12] MEDS ORDERED: BUPIVACAINE 0.25% PF 30 ML VIAL EPI PRN (16:53)
[2023-11-12] MEDS ORDERED: SODIUM CHLORIDE 0.9% PF INJ 10 ML VIAL EPI PRN (16:53)
[2023-11-12] MEDS ORDERED: diphenhydrAMINE 50 MG/ML VIAL IV PRN (16:53)
[2023-11-12] MEDS ORDERED: ePHEDrine sulfate 50 MG/ML AMP IV PRN (16:53)
[2023-11-12] MEDS ORDERED: NALOXONE HCL 0.4 MG/1 ML VIAL/CARP IV PRN (16:53)
[2023-11-12] MEDS ORDERED: NALBUPHINE HCL 5 MG in SYRINGE 0 ML IV PRN (16:53)
[2023-11-12] MEDS ORDERED: LIDOCAINE 2% MPF LOCAL 5 ML VIAL EPI PRN (16:53)
--- NOTE | 2023-11-12 16:53 | Anesthesiology Consultation ---
Date of Service November 12, 2023 Assessment & Plan ASA ASA2 Proposed Anesthesia Anesthesia Type: MAC Risk / Benefits Reviewed With: PT / POA / Parent / Guardian, Accepts Plan and Informed Consent Obtained History Height/Weight Height: 5 ft 5 in Weight: 83.461 kg Allergies Allergy/AdvReac Type Severity Reaction Status Date / Time sulfamethoxazole Allergy Severe "1/2 OF Verified 07/04/21 22:15 BODY SWELLED UP, RASH". trimethoprim Allergy Severe "1/2 OF Verified 07/04/21 22:15 BODY SWELLED UP, RASH". cefuroxime Allergy Unknown Verified 10/12/23 17:16 cephalexin Allergy Rash Verified 10/12/23 17:16 Medications Home Medications Medication Instructions Recorded Confirmed Last Taken vits no.124-ferrous fum 1 tab PO DAILY 10/12/23 10/12/23 11/05/23 27 mg iron-folic acid 800 mcg tablet ( Vitamin) Active Medications Generic Name Dose Route Start Last Admin Trade Name Freq PRN Reason Stop Dose Admin Butorphanol Tartrate 1 mg 11/12/23 10:01 11/12/23 14:40 Butorphanol Tartrate 2 Mg/Ml Vial IV 12/12/23 10:00 1 mg Q3HWA PRN Administration Pain Lactated Ringer's 1,000 mls @ 150 mls/hr 11/12/23 09:04 11/12/23 16:55 Lr IV 11/14/23 09:03 999 mls/hr .[id number] PRN Administration L&D Protocol Protocol Past Medical History Medical History History of anxiety at age 11 History of depression at age 11 Scoliosis Spinal stenosis Migraine Asthma Exercise / Class Metabolic Activity II 4-5 Yardwork/Stairs/Walk up hill Past Anesthesia History No Hx of Anesthesia Complications and No Family Hx of Anesthesia Complications History of PONV No Hx of PONV and No Hx of Motion Sickness Social History Smoking Status: Never smoker Hx Alcohol Use: No Hx Substance Use: No substance use type: does not use Review of Systems denies fever/cough/ colds/ chest pain/ SOB/ HA denies HA Physical Exam Vital Signs Last Vital Signs Temp 37.2 C 11/12/23 17:45 Pulse 84 11/12/23 17:49 Resp 16 11/12/23 17:45 BP 115/71 11/12/23 17:47 Pulse Ox 100 11/12/23 17:49 ENMT Mouth: no TMJ abnormality and no dentition abnormality Thyromental Distance: > or= 3.5 Finger Breadths Mallampati Class: II Neck neck extension not limited Respiratory normal respiratory effort; no respiratory distress Auscultation: lungs clear to auscultation bilaterally Cardiovascular Rate/Rhythm: regular rate and regular rhythm Neurologic moves all extremities Psychiatric Orientation: alert and oriented x 3 Testing Laboratory Results 11/12/23 09:16
[2023-11-12] MEDS: fentANYL 2 MCG/ML BUPIVacaine 0.125%-NSS 100ML BAG ONE (17:18)
[2023-11-12] MEDS: SODIUM CHLORIDE 0.9% PF INJ 10 ML VIAL ONE (17:18)
[2023-11-12] MEDS: fentaNYL citrate PF 100 MCG/2 ML VIAL ONE (17:20)
[2023-11-12] MEDS: BUPIVACAINE 0.25% PF 30 ML VIAL ONE (17:20)
[2023-11-12] MEDS: LIDOCAINE 2%/EPINEPHRINE 1:200,000 20 ML PF ONE (17:20)
[2023-11-12] MEDS: BUPIVACAINE 0.25% PF 30 ML VIAL EPI STA (17:22)
[2023-11-12] MEDS: fentaNYL citrate PF 100 MCG/2 ML VIAL EPI STA (17:22)
[2023-11-12] MEDS: LIDOCAINE 2%/EPINEPHRINE 1:200,000 20 ML PF EPI STA (17:22)
[2023-11-12] MEDS: SODIUM CHLORIDE 0.9% PF INJ 10 ML VIAL EPI STA (17:22)
--- NOTE | 2023-11-12 17:46 | Obstetrical Progress Note ---
Date of Service November 12, 2023 Assessment & Plan Admission and Anticipated Discharge Date Admission Date: November 12, 2023 Subjective Patient has received epidural for pain Comfortable nw VSS Afebrile FHR categ I VE; 4/ 60%/ -2, large bulging bag, AROM'ed, light meconium, Cervidil is removed Continue to monitor Augment with Oxytocin Results & Data Vital Signs (Past 12 Hours) Vital Signs Temp Pulse Resp BP Pulse Ox 11/12/23 17:41 107 H 118/64 11/12/23 17:39 103 H 98 11/12/23 17:37 110 H 125/61 91 11/12/23 17:34 98 H 98 11/12/23 17:31 93 H 125/71 11/12/23 17:29 94 H 96 11/12/23 17:25 83 119/69 11/12/23 17:24 93 H 99 11/12/23 17:23 90 120/66 11/12/23 17:21 89 121/69 11/12/23 17:19 83 120/71 99 11/12/23 17:17 82 119/69 11/12/23 17:15 104 H 130/70 11/12/23 17:14 93 H 95 11/12/23 17:13 89 127/75 11/12/23 17:09 99 H 100 11/12/23 17:04 99 H 97 11/12/23 16:59 88 98 11/12/23 16:56 80 121/69 11/12/23 16:54 89 99 11/12/23 15:06 16 11/12/23 15:06 16 11/12/23 15:05 36.9 C 76 117/73 11/12/23 13:56 95 H 133/67 11/12/23 11:06 36.8 C 11/12/23 07:42 16 11/12/23 07:39 96 H 117/63 11/12/23 07:38 36.5 C
[2023-11-12] MEDS: ePHEDrine sulfate 50 MG/ML AMP ONE (17:50)
[2023-11-12] MEDS: OXYTOCIN 30 UNITS/NSS 30 UNITS/500 ML BAG IV PRN (18:00)
--- NOTE | 2023-11-12 20:43 | Obstetrical Progress Note ---
Date of Service November 12, 2023 Assessment & Plan Admission and Anticipated Discharge Date Admission Date: November 12, 2023 Subjective Patient is reevaluated. Feels well, no complaints. VSS AFebrile FHR categ I VE; 4-5 cm/ 60%/-2, head is cone shaped and close to anterior pubic symphysis, posterior sacral fossa is empty, ROP Nursing team has not started Oxytocin due to frequent contractions which was not spacing out Plan for Rt lateral positioning and start Oxytocin Continue to monitor Results & Data Vital Signs (Past 12 Hours) Vital Signs Temp Pulse Resp BP Pulse Ox 11/12/23 20:39 95 H 97 11/12/23 20:34 74 97 11/12/23 20:29 94 H 98 11/12/23 20:24 80 95 11/12/23 20:23 75 103/63 11/12/23 20:19 81 94 11/12/23 20:17 83 94 11/12/23 20:14 77 95 11/12/23 20:11 79 94 11/12/23 20:09 74 95 11/12/23 20:06 76 109/69 11/12/23 20:05 98 H 93 11/12/23 20:04 79 95 11/12/23 20:00 18 11/12/23 20:00 18 11/12/23 19:59 67 97 11/12/23 19:54 76 98 11/12/23 19:53 74 103/54 L 11/12/23 19:49 75 99 11/12/23 19:44 83 97 11/12/23 19:41 76 92 11/12/23 19:39 75 99 11/12/23 19:36 72 100/60 11/12/23 19:34 80 98 11/12/23 19:31 95 H 93 11/12/23 19:30 18 11/12/23 19:30 18 11/12/23 19:29 85 98 11/12/23 19:24 79 97 11/12/23 19:22 78 113/66 11/12/23 19:19 81 96 11/12/23 19:14 92 H 97 11/12/23 19:09 82 98 11/12/23 19:08 80 114/70 11/12/23 19:04 79 98 11/12/23 19:02 36.7 C 18 11/12/23 18:59 81 98 11/12/23 18:54 83 99 11/12/23 18:52 95 H 118/79 11/12/23 18:49 99 11/12/23 18:49 85 11/12/23 18:49 84 90 11/12/23 18:44 94 H 98 11/12/23 18:39 82 99 11/12/23 18:37 85 121/72 92 11/12/23 18:34 84 98 11/12/23 18:30 90 88 L 11/12/23 18:29 95 H 99 11/12/23 18:25 88 92 11/12/23 18:24 80 99 11/12/23 18:22 90 113/69 11/12/23 18:19 90 100 11/12/23 18:17 83 94 11/12/23 18:14 94 H 99 11/12/23 18:12 95 H 91 11/12/23 18:09 101 H 83 L 11/12/23 18:06 108 H 122/75 92 11/12/23 18:04 110 H 100 11/12/23 17:59 96 H 100 11/12/23 17:54 102 H 100 11/12/23 17:50 92 H 91 11/12/23 17:49 84 100 11/12/23 17:47 96 H 115/71 11/12/23 17:45 16 11/12/23 17:45 37.2 C 11/12/23 17:44 94 H 100 11/12/23 17:41 107 H 118/64 11/12/23 17:39 103 H 98 11/12/23 17:37 110 H 125/61 91 11/12/23 17:34 98 H 98 11/12/23 17:31 93 H 125/71 11/12/23 17:30 16 11/12/23 17:29 94 H 96 11/12/23 17:25 83 119/69 11/12/23 17:24 93 H 99 11/12/23 17:23 90 120/66 11/12/23 17:21 89 121/69 11/12/23 17:19 83 120/71 99 11/12/23 17:17 82 119/69 11/12/23 17:15 104 H 130/70 11/12/23 17:14 93 H 95 03/20/24 17:13 89 127/75 11/12/23 17:09 99 H 100 11/12/23 17:04 99 H 97 11/12/23 16:59 88 98 11/12/23 16:56 80 121/69 11/12/23 16:54 89 99 11/12/23 15:06 16 11/12/23 15:06 16 11/12/23 15:05 36.9 C 76 117/73 11/12/23 13:56 95 H 133/67 11/12/23 11:06 36.8 C
--- NOTE | 2023-11-12 22:46 | Obstetrical Progress Note ---
Date of Service November 12, 2023 Assessment & Plan Admission and Anticipated Discharge Date Admission Date: November 12, 2023 Subjective Patient had bloody show and c/o back pain VSS Afebrile FHR categ I VE: 10/ 100%/ +2 Patient does not have pressure nor urge to push Will let push pain button and labor down Continue to monitor closely. Results & Data Vital Signs (Past 12 Hours) Vital Signs Temp Pulse Resp BP Pulse Ox 11/12/23 22:44 96 H 100 11/12/23 22:39 73 97 11/12/23 22:36 78 106/64 11/12/23 22:35 91 H 94 11/12/23 22:34 88 97 11/12/23 22:30 20 11/12/23 22:30 20 11/12/23 22:29 81 98 11/12/23 22:24 89 98 11/12/23 22:22 76 100/63 11/12/23 22:19 79 96 11/12/23 22:14 82 96 11/12/23 22:09 80 95 11/12/23 22:08 73 109/59 L 11/12/23 22:04 89 98 11/12/23 22:00 20 11/12/23 22:00 20 11/12/23 21:59 76 94 11/12/23 21:56 75 94 11/12/23 21:54 77 94 11/12/23 21:52 74 99/56 L 11/12/23 21:49 74 94 11/12/23 21:44 78 94 11/12/23 21:43 75 94 11/12/23 21:39 77 94 11/12/23 21:37 77 94 11/12/23 21:36 76 98/56 L 11/12/23 21:34 73 95 11/12/23 21:30 16 11/12/23 21:30 16 11/12/23 21:29 73 95 11/12/23 21:24 77 94 11/12/23 21:23 75 94 11/12/23 21:21 73 93/55 L 11/12/23 21:19 74 95 11/12/23 21:14 89 97 11/12/23 21:10 36.9 C 11/12/23 21:09 85 96 11/12/23 21:07 83 107/60 11/12/23 21:04 84 95 11/12/23 21:00 18 11/12/23 21:00 18 11/12/23 20:59 83 95 11/12/23 20:54 80 96 11/12/23 20:52 85 108/71 11/12/23 20:49 83 97 11/12/23 20:44 81 97 11/12/23 20:39 95 H 97 11/12/23 20:34 74 97 11/12/23 20:30 20 11/12/23 20:30 20 11/12/23 20:29 94 H 98 11/12/23 20:24 80 95 11/12/23 20:23 75 103/63 11/12/23 20:19 81 94 11/12/23 20:17 83 94 11/12/23 20:14 77 95 11/12/23 20:11 79 94 11/12/23 20:09 74 95 11/12/23 20:06 76 109/69 11/12/23 20:05 98 H 93 11/12/23 20:04 79 95 11/12/23 20:00 18 11/12/23 20:00 18 11/12/23 19:59 67 97 11/12/23 19:54 76 98 11/12/23 19:53 74 103/54 L 11/12/23 19:49 75 99 11/12/23 19:44 83 97 11/12/23 19:41 76 92 11/12/23 19:39 75 99 11/12/23 19:36 72 100/60 11/12/23 19:34 80 98 11/12/23 19:31 95 H 93 11/12/23 19:30 18 11/12/23 19:30 18 11/12/23 19:29 85 98 11/12/23 19:24 79 97 11/12/23 19:22 78 113/66 11/12/23 19:19 81 96 11/12/23 19:14 92 H 97 11/12/23 19:09 82 98 11/12/23 19:08 80 114/70 11/12/23 19:04 79 98 11/12/23 19:02 36.7 C 18 11/12/23 18:59 81 98 11/12/23 18:54 83 99 11/12/23 18:52 95 H 118/79 11/12/23 18:49 99 11/12/23 18:49 85 11/12/23 18:49 84 90 11/12/23 18:44 94 H 98 11/12/23 18:39 82 99 11/12/23 18:37 85 121/72 92 11/12/23 18:34 84 98 11/12/23 18:30 90 88 L 11/12/23 18:29 95 H 99 11/12/23 18:25 88 92 11/12/23 18:24 80 99 11/12/23 18:22 90 113/69 11/12/23 18:19 90 100 11/12/23 18:17 83 94 11/12/23 18:14 94 H 99 11/12/23 18:12 95 H 91 11/12/23 18:09 101 H 83 L 11/12/23 18:06 108 H 122/75 92 11/12/23 18:04 110 H 100 11/12/23 17:59 96 H 100 11/12/23 17:54 102 H 100 11/12/23 17:50 92 H 91 11/12/23 17:49 84 100 11/12/23 17:47 96 H 115/71 11/12/23 17:45 16 11/12/23 17:45 37.2 C 11/12/23 17:44 94 H 100 11/12/23 17:41 107 H 118/64 11/12/23 17:39 103 H 98 11/12/23 17:37 110 H 125/61 91 11/12/23 17:34 98 H 98 11/12/23 17:31 93 H 125/71 11/12/23 17:30 16 11/12/23 17:29 94 H 96 11/12/23 17:25 83 119/69 11/12/23 17:24 93 H 99 11/12/23 17:23 90 120/66 11/12/23 17:21 89 121/69 11/12/23 17:19 83 120/71 99 11/12/23 17:17 82 119/69 11/12/23 17:15 104 H 130/70 11/12/23 17:14 93 H 95 11/12/23 17:13 89 127/75 11/12/23 17:09 99 H 100 11/12/23 17:04 99 H 97 11/12/23 16:59 88 98 11/12/23 16:56 80 121/69 11/12/23 16:54 89 99 11/12/23 15:06 16 11/12/23 15:06 16 11/12/23 15:05 36.9 C 76 117/73 11/12/23 13:56 95 H 133/67 11/12/23 11:06 36.8 C
[2023-11-12] MEDS ORDERED: NURSING L&D Epidural Breakthrough Pain Update ONE (22:53)
[2023-11-12] MEDS: fentANYL 2 MCG/ML BUPIVacaine 0.125%-NSS 100ML BAG EPI PRN (23:18)
--- NOTE | 2023-11-13 00:23 | Obstetrical Progress Note ---
Date of Service November 13, 2023 Assessment & Plan Admission and Anticipated Discharge Date Admission Date: November 12, 2023 Subjective Patient has been pushing for the last 1/2 hour FHR categ I Caput is visible with pushed, at +3 Continue to monitor closely Results & Data Vital Signs (Past 12 Hours) Vital Signs Temp Pulse Resp BP Pulse Ox 11/13/23 00:20 96 H 95 11/13/23 00:15 105 H 83 L 11/13/23 00:13 109 H 90 11/13/23 00:10 103 H 95 11/13/23 00:07 95 H 108/70 11/13/23 00:06 96 H 92 11/13/23 00:05 104 H 96 11/13/23 00:00 96 H 95 11/12/23 23:54 103 H 98 11/12/23 23:53 105 H 92 11/12/23 23:51 88 112/75 11/12/23 23:49 109 H 98 11/12/23 23:47 113 H 87 L 11/12/23 23:44 96 H 99 11/12/23 23:39 105 H 99 11/12/23 23:37 107 H 117/77 11/12/23 23:34 101 H 100 11/12/23 23:30 20 11/12/23 23:30 20 11/12/23 23:29 112 H 100 11/12/23 23:24 100 H 99 11/12/23 23:21 90 110/63 11/12/23 23:19 93 H 100 11/12/23 23:14 97 H 100 11/12/23 23:09 99 H 100 11/12/23 23:06 94 H 120/75 11/12/23 23:04 109 H 100 11/12/23 23:00 20 11/12/23 23:00 20 11/12/23 22:59 92 H 100 11/12/23 22:54 91 H 99 11/12/23 22:53 106 H 126/78 11/12/23 22:49 97 H 100 11/12/23 22:44 96 H 100 11/12/23 22:39 73 97 11/12/23 22:36 78 106/64 11/12/23 22:35 91 H 94 11/12/23 22:34 88 97 03/20/24 22:30 20 11/12/23 22:30 20 11/12/23 22:29 81 98 11/12/23 22:24 89 98 11/12/23 22:22 76 100/63 11/12/23 22:19 79 96 11/12/23 22:14 82 96 11/12/23 22:09 80 95 11/12/23 22:08 73 109/59 L 11/12/23 22:04 89 98 11/12/23 22:00 20 11/12/23 22:00 20 11/12/23 21:59 76 94 11/12/23 21:56 75 94 11/12/23 21:54 77 94 11/12/23 21:52 74 99/56 L 11/12/23 21:49 74 94 11/12/23 21:44 78 94 11/12/23 21:43 75 94 11/12/23 21:39 77 94 11/12/23 21:37 77 94 11/12/23 21:36 76 98/56 L 11/12/23 21:34 73 95 11/12/23 21:30 16 11/12/23 21:30 16 11/12/23 21:29 73 95 11/12/23 21:24 77 94 11/12/23 21:23 75 94 11/12/23 21:21 73 93/55 L 11/12/23 21:19 74 95 11/12/23 21:14 89 97 11/12/23 21:10 36.9 C 11/12/23 21:09 85 96 11/12/23 21:07 83 107/60 11/12/23 21:04 84 95 11/12/23 21:00 18 11/12/23 21:00 18 11/12/23 20:59 83 95 11/12/23 20:54 80 96 11/12/23 20:52 85 108/71 11/12/23 20:49 83 97 11/12/23 20:44 81 97 11/12/23 20:39 95 H 97 11/12/23 20:34 74 97 11/12/23 20:30 20 11/12/23 20:30 20 11/12/23 20:29 94 H 98 11/12/23 20:24 80 95 11/12/23 20:23 75 103/63 11/12/23 20:19 81 94 11/12/23 20:17 83 94 11/12/23 20:14 77 95 11/12/23 20:11 79 94 11/12/23 20:09 74 95 11/12/23 20:06 76 109/69 11/12/23 20:05 98 H 93 11/12/23 20:04 79 95 11/12/23 20:00 18 11/12/23 20:00 18 11/12/23 19:59 67 97 11/12/23 19:54 76 98 11/12/23 19:53 74 103/54 L 11/12/23 19:49 75 99 11/12/23 19:44 83 97 11/12/23 19:41 76 92 11/12/23 19:39 75 99 11/12/23 19:36 72 100/60 11/12/23 19:34 80 98 11/12/23 19:31 95 H 93 11/12/23 19:30 18 11/12/23 19:30 18 11/12/23 19:29 85 98 11/12/23 19:24 79 97 11/12/23 19:22 78 113/66 11/12/23 19:19 81 96 11/12/23 19:14 92 H 97 11/12/23 19:09 82 98 11/12/23 19:08 80 114/70 11/12/23 19:04 79 98 11/12/23 19:02 36.7 C 18 11/12/23 18:59 81 98 11/12/23 18:54 83 99 11/12/23 18:52 95 H 118/79 11/12/23 18:49 99 11/12/23 18:49 85 11/12/23 18:49 84 90 11/12/23 18:44 94 H 98 11/12/23 18:39 82 99 11/12/23 18:37 85 121/72 92 11/12/23 18:34 84 98 11/12/23 18:30 90 88 L 11/12/23 18:29 95 H 99 11/12/23 18:25 88 92 11/12/23 18:24 80 99 11/12/23 18:22 90 113/69 11/12/23 18:19 90 100 11/12/23 18:17 83 94 11/12/23 18:14 94 H 99 11/12/23 18:12 95 H 91 11/12/23 18:09 101 H 83 L 11/12/23 18:06 108 H 122/75 92 11/12/23 18:04 110 H 100 11/12/23 17:59 96 H 100 11/12/23 17:54 102 H 100 11/12/23 17:50 92 H 91 11/12/23 17:49 84 100 11/12/23 17:47 96 H 115/71 11/12/23 17:45 16 11/12/23 17:45 37.2 C 11/12/23 17:44 94 H 100 11/12/23 17:41 107 H 118/64 11/12/23 17:39 103 H 98 11/12/23 17:37 110 H 125/61 91 11/12/23 17:34 98 H 98 11/12/23 17:31 93 H 125/71 11/12/23 17:30 16 11/12/23 17:29 94 H 96 11/12/23 17:25 83 119/69 11/12/23 17:24 93 H 99 11/12/23 17:23 90 120/66 11/12/23 17:21 89 121/69 11/12/23 17:19 83 120/71 99 11/12/23 17:17 82 119/69 11/12/23 17:15 104 H 130/70 11/12/23 17:14 93 H 95 11/12/23 17:13 89 127/75 11/12/23 17:09 99 H 100 11/12/23 17:04 99 H 97 11/12/23 16:59 88 98 11/12/23 16:56 80 121/69 11/12/23 16:54 89 99 11/12/23 15:06 16 11/12/23 15:06 16 11/12/23 15:05 36.9 C 76 117/73 11/12/23 13:56 95 H 133/67
[2023-11-13] MEDS: MINERAL OIL 30 ML UDC ONE (01:00)
[2023-11-13] MEDS: METHYLERGONOVINE MALEATE 0.2 MG/ML AMP IM ONE (01:36)
[2023-11-13] MEDS ORDERED: oxyCODONE/ACETAMINOPHEN 5mg/325mg TAB PO PRN (01:47)
[2023-11-13] MEDS ORDERED: HYDROCORTISONE ACETATE 25 MG SUPP PR PRN (01:47)
[2023-11-13] MEDS ORDERED: OXYTOCIN 30 UNITS/NSS 30 UNITS/500 ML BAG IV PRN (01:47)
--- NOTE | 2023-11-13 01:54 | Delivery Summary ---
Vaginal Delivery Summary Date of Service November 13, 2023 Vaginal Delivery Summary Patient was found to be fully dilated and desired to push. She pushed for about 90 min and noted head still at ROP position. It was manually rotated in counter clock thomas direction into OA position by myself. After 2 sets of pushing, delivered the head and then shoulders with minimal traction without difficulty. The baby was handed off to the mother. The cord was clampedx2 and cut at 1 minute. The vagina and perineum were checked and found to have small 2nd degree perineal laceration and bilateral 1st degree labial lacerations. The vaginal mucosa was repaired with 2/0 vicryl and skin on subcuticular fashion. Labia were repaired with 3/0 Vicryl on SH needle. The placenta was delivered spontaneously as intact and complete. The uterus was explored and emptied of cloths. IV Oxytocin was started and single dose of IM Methergine was given. EBL was 300 ml. The fundus was firm. The baby was a viable female infant, Apgars 7/9, the weight is pending. The mother and the baby tolerated the procedure well. No complications happened and I was present during whole procedure.
[2023-11-13] MEDS: ONDANSETRON INJ 2 MG/ML 2 ML VIAL IV PRN (02:30)
[2023-11-13] MEDS: DIPHTHER/TETAN/PERTUS Vaccine (Tdap, Adol/Adult) 0.5mL IM ONE (02:36)
[2023-11-13] MEDS: MEASLES, MUMPS & RUBELLA VIRUS VACCINE (MMR) VIAL SQ ONE (02:36)
[2023-11-13] MEDS: METHYLERGONOVINE MALEATE 0.2 MG TAB PO SCH (03:13)
[2023-11-13] MEDS: IBUPROFEN 600 MG TAB PO PRN (04:34)
[2023-11-13] MEDS: BENZOCAINE 20% SPRY 85 APPLN/85 GM CAN EXT PRN (04:35)
[2023-11-13] MEDS: DOCUSATE SODIUM 100 MG CAP PO SCH (08:37)
[2023-11-13] MEDS: FERROUS SULFATE 325 MG TAB PO SCH (08:38)
[2023-11-13] MEDS: PRENATAL VITAMIN 1 TAB PO SCH (08:38)
--- NOTE | 2023-11-13 08:53 | Anesthesia Procedure Note ---
Date of Service November 13, 2023 Anesthesia Post Epidural Note Vital Signs Vital Signs: Temp Pulse Resp BP Pulse Ox O2 Del Method 98.2 F 76 16 111/68 97 Room Air 11/13/23 04:20 11/13/23 04:20 11/13/23 04:20 11/13/23 04:20 11/13/23 04:20 11/13/23 04:20 Pain Intensity Lower Back: Pain Intensity: 6 Episiotomy/Laceration: Pain Intensity: 3 Notes Mental Status: alert / awake / arousable and participated in evaluation Nausea / Vomiting: adequately controlled Pain: adequately controlled Airway Patency, RR, SpO2: stable & adequate BP & HR: stable & adequate Hydration State: stable & adequate Neuraxial Anesthesia: was administered and sensory block is resolving Anesthetic Complications: no major complications apparent and Pt Satisfied with anesthetic care Epidural: Removed without complications and With tip intact
[2023-11-13] MEDS: ACETAMINOPHEN 325 MG TAB PO PRN (13:43)
[2023-11-14 06:12] LABS: Hematocrit (blood only) 31.4 % (37.0-47.0); Hemoglobin 10.5 g/dl (12.0-16.0); Mean Corpuscular Hemoglobin 28.9 pg (25.0-34.0); Mean Corpuscular Hgb Conc 33.4 g/dL (32.0-36.0); Mean Corpuscular Volume 86.5 fL (80.0-100.0); Mean Platelet Volume 9.9 fL (9.4-12.4); Platelet Count 216 K/uL (130-400); RDW Coefficient of Variation 13.2 % (11.5-14.5); RDW Standard Deviation 41.3 fL (36.4-46.3); Red Blood Count 3.63 M/uL (4.20-5.40); White Blood Count 13.52 K/ul (4.8-10.8)
--- NOTE | 2023-11-14 08:53 | Obstetrical Progress Note ---
Date of Service November 14, 2023 Assessment & Plan (1) Polyhydramnios in ruby in third trimester: Present on Admission?: Yes (2) Post-term , 40-42 weeks of gestation: Present on Admission?: Yes (3) Normal course: Present on Admission?: No Plan continue routine care regular diet ambulation Discharge plan for tomorrow Admission and Anticipated Discharge Date Admission Date: November 12, 2023 Supervising Physician Co-Signing Physician Notes Dr. Adrian Pimentel MD Subjective #1 Physical Exam Constitutional: WD/WN, vitals as above well developed Respiratory: normal respiratory effort, lungs clear to auscultation Cardiovascular: RRR, no murmur, no edema Genitourinary: deferred Results & Data Vital Signs (Past 12 Hours) Vital Signs Temp Pulse Resp BP Pulse Ox O2 Del Method 11/13/23 23:00 36.7 C 85 16 113/75 98 Room Air
[2023-11-14] MEDS: bisacodyL 5 MG TABEC PO SCH (21:22)
[2023-11-15] MEDS ORDERED: bisacodyL 10 MG SUPP PR PRN
[2023-11-15 06:39] LABS: Hematocrit (blood only) 30.4 % (37.0-47.0)
--- NOTE | 2023-11-15 08:22 | Obstetrical Progress Note ---
Date of Service November 15, 2023 Assessment & Plan Admission and Anticipated Discharge Date Admission Date: November 12, 2023 Subjective Patient is seen and examined. She feels well, no complaints. Ambulating without dizziness Voiding without difficulty Tolerating regular diet with out N&V Bleeding is minimal No fever/ chills/ CP/ SOB/ N&V/ Leg pain Breast and formula feeding without problems Lab Results 11/12/23 11/14/23 11/15/23 Range/Units 09:16 05:50 06:18 WBC 9.89 13.52 H (4.8-10.8) K/ul RBC 4.15 L 3.63 L (4.20-5.40) M/uL Hgb 12.0 10.5 L 10.0 L (12.0-16.0) g/dl Hct 36.2 L 31.4 L 30.4 L (37.0-47.0) % MCV 87.2 86.5 (80.0-100.0) fL MCH 28.9 28.9 (25.0-34.0) pg MCHC 33.1 33.4 (32.0-36.0) g/dL RDW Std Deviation 41.1 41.3 (36.4-46.3) fL RDW Coeff of Aleida 13.2 13.2 (11.5-14.5) % Plt Count 274 216 (130-400) K/uL MPV 10.0 9.9 (9.4-12.4) fL Vital Signs Temp Pulse Pulse Resp BP Pulse Ox O2 Del Method 11/15/23 08:11 36.8 C 80 19 104/70 11/14/23 23:10 36.5 C 79 18 110/73 99 Room Air PE: General: Alert, orientedx3, NAD Abd: soft, NT, fundus firm, below Umbilicus Perineum intact, Lochia rubra minimal Ext; NT, no edema AP: 18 yo s/p , ppd# 2 VSS Afebrile doing well Continue routine care All questions were answered D/C home , f/u in office Results & Data Vital Signs (Past 12 Hours) Vital Signs Temp Pulse Pulse Resp BP Pulse Ox O2 Del Method 11/15/23 08:11 36.8 C 80 19 104/70 11/14/23 23:10 36.5 C 79 18 110/73 99 Room Air
== END 2023-11-15 11:47 | disposition home or self-care (01) | DRG 807 ==
LOC: 4S1 07:31 → 4E2 11-13 04:22